=== PATIENT | female | born 1965 | race Caucasian/White ===

== ENCOUNTER → 2022-10-09 06:39 | Outpatient (CLI) | payer OTHER, SELFPAY ==
--- NOTE | 2022-10-09 07:45 | DI.CT.S_ITS ---
PROCEDURE: CT SINUS SCREEN WO CON INDICATIONS: CHRONIC PANSINUSITIS TECHNIQUE: Noncontrast 3.0 mm axial images acquired from the frontal sinuses to the mid-sella, with coronal and sagittal reformats. For radiation dose reduction, the following was used: automated exposure control, adjustment of mA and/or kV according to patient size. COMPARISON: None. FINDINGS: Image quality: Excellent. Maxillary Sinuses: No bony remodeling or destruction. Mild right maxillary sinus mucosal thickening can be seen superiorly. Ethmoid Air Cells: No bony remodeling or destruction. Sinuses are clear. Sphenoid Sinuses: No bony remodeling or destruction. Sinuses are clear. Frontal Sinuses: No bony remodeling or destruction. Sinuses are clear. Ostiomeatal Complexes: Ostiomeatal complexes are patent. No Paula cells. Miscellaneous: Visualized intra-orbital contents are normal. There are tiny bilateral amadou bullosa seen. There is minimal rightward nasal septal deviation. IMPRESSION: Mild right maxillary sinus mucosal thickening is seen. Tiny bilateral amadou bullosa. There is minimal rightward nasal septal deviation. Dictated by: Charlie Serrano M.D. on 10/09/2022 at 12:55 Approved by: Charlie Serrano M.D. on 10/09/2022 at 12:56
== END ==
LOC: CT 06:42
PROVIDERS: PCP Family Medicine; Referring Provider Otolaryngology; Visit Provider Otolaryngology
DX: J32.4 Chronic pansinusitis (principal)
CPT/HCPCS: 70486